=== PATIENT | female | born 1970 ===

== ENCOUNTER 2018-08-12 09:41 | Emergency (ER) | payer BC, MEDICAID ==
[2018-08-12 09:51] VITALS: RESP 18
[2018-08-12] MEDS ORDERED: Iohexol 240 (50 ml) PO STA (10:16)
[2018-08-12] MEDS ORDERED: Sodium Chloride 0.9% 1,000 ML IV STA (10:16)
[2018-08-12] MEDS ORDERED: Iohexol 240 (50 ml) ONE (10:29)
[2018-08-12] MEDS ORDERED: Sodium Chloride 0.9% 1,000 ML ONE (10:29)
[2018-08-12 10:38] LABS: HCG,QUALITATIVE URINE NEGATIVE (NEGATIVE); SQUAMOUS EPITHIAL 7 /hpf (0-5); URINE BILIRUBIN NEGATIVE (NEGATIVE); URINE BLOOD NEGATIVE (NEGATIVE); URINE CLARITY Clear (Clear); URINE COLOR Straw (YELLOW); URINE GLUCOSE (UA) NORMAL (Normal); URINE LEUKOCYTE ESTERASE NEG Leu/uL (Negative); URINE PROTEIN NEGATIVE (NEGATIVE); URINE UROBILINOGEN NORMAL mg/dL (0.2-1.0)
[2018-08-12 10:40] LABS: BASO # 0.1 K/uL (0.0-0.2); BASO % 1.4 % (0.0-2.0); EOS # 0.2 K/uL (0.0-0.7); EOS % 3.2 % (0.0-4.0); HEMOGLOBIN 12.3 g/dL (11.0-16.0); LYMPH # 2.5 K/uL (1.0-4.3); LYMPH % 36.6 % (20.0-40.0); MEAN CELL VOLUME 83.6 fL (81.0-99.0); MEAN CORPUSCULAR HEMOGLOBIN 27.9 pg (27.0-31.0); MEAN CORPUSCULAR HGB CONC 33.4 g/dL (33.0-37.0); MONO # 0.4 K/uL (0.0-0.8); MONO % 6.4 % (0.0-10.0); NEUT # 3.6 K/uL (1.8-7.0); NEUT % 52.4 % (50.0-75.0); RBC 4.4 Mil/uL (3.80-5.20); RED CELL DISTRIBUTION WIDTH 14.7 % (11.5-14.5); WHITE BLOOD COUNT 6.8 K/uL (4.8-10.8)
[2018-08-12 10:48] LABS: ALB/GLOB RATIO 1.2 (1.0-2.1); ALBUMIN 3.9 g/dL (3.5-5.0); ALT/SGPT 11 U/L (9-52); AST/SGOT 27 U/L (14-36); BLOOD UREA NITROGEN 13 mg/dL (7-17); CALCIUM 8.7 mg/dl (8.6-10.4); GFR NON-AFRICAN AMERICAN > 60; LIPASE 83 U/L (23-300)
--- NOTE | 2018-08-12 12:13 | C.PDOC ---
History Of Present Illness 47 y/o female presents to the ED complaining of abdominal pain for 1 week. Patient notes the pain was initially periumbilical, now localized to the LLQ. She denies any nausea, vomiting, diarrhea, chest pain, SOB, or fever. Time Seen by Provider: 08/12/18 10:05 Chief Complaint (Nursing): Abdominal Pain History Per: Patient History/Exam Limitations: no limitations Onset/Duration Of Symptoms: Days Current Symptoms Are (Timing): Still Present Location Of Pain/Discomfort: LLQ Associated Symptoms: denies: Fever, Vomiting, Diarrhea Past Medical History Reviewed: Historical Data, Nursing Documentation, Vital Signs Vital Signs: Last Vital Signs Temp 99.6 F 08/12/18 09:49 Pulse 79 08/12/18 09:49 Resp 18 08/12/18 09:49 BP 122/77 08/12/18 09:49 Pulse Ox 99 08/12/18 09:49 - Medical History PMH: Hypercholesterolemia Surgical History: Family History: States: Diabetes - Social History Hx Tobacco Use: No (former) Hx Alcohol Use: No Hx Substance Use: No - Immunization History Hx Tetanus Toxoid Vaccination: No Hx Influenza Vaccination: No Hx Pneumococcal Vaccination: No Review Of Systems Except As Marked, All Systems Reviewed And Found Negative. Constitutional: Negative for: Fever, Chills Gastrointestinal: Positive for: Abdominal Pain. Negative for: Nausea, Vomiting, Diarrhea, Hematochezia Genitourinary: Negative for: Dysuria, Frequency, Vaginal Bleeding Musculoskeletal: Negative for: Back Pain Physical Exam - Physical Exam Appears: Non-toxic, No Acute Distress Skin: Warm, Dry Head: Atraumatic, Normacephalic Eye(s): bilateral: Normal Inspection Oral Mucosa: Moist Neck: Normal ROM Chest: Symmetrical Cardiovascular: Rhythm Regular, No Murmur Respiratory: Normal Breath Sounds, No Rales, No Rhonchi, No Wheezing Gastrointestinal/Abdominal: Soft, Tenderness (to the LLQ), No Guarding, No Rebound Back: No CVA Tenderness Extremity: Bilateral: Atraumatic, Normal Color And Temperature, Normal ROM Neurological/Psych: Oriented x3, Normal Speech ED Course And Treatment - Laboratory Results Result Diagrams: 08/12/18 10:28 08/12/18 10:28 O2 Sat by Pulse Oximetry: 99 (RA) Pulse Ox Interpretation: Normal - CT Scan/US CT abdomen/pelvis Other Rad Studies (CT/US): Read By Radiologist, Radiology Report Reviewed CT/US Interpretation: Accession No. : [id number]. Patient Name / ID : FELIPE CARBONE / [id number]. Exam Date : 08/12/2018 13:59:16 ( Approved ). Study Comment : Sex / Age : F / 47Y. Creator : Akua Calles. Dictator : Rufina Sargent MD. Tester Sound : Tool Analyst : Rufina Sargent MD. Approver2 : Report Date : 08/12/2018 14:04:48. My Comment : . PROCEDURE: CT Abdomen and Pelvis with oral and IV contrast. HISTORY: LLQ abd pain. COMPARISON: None available. TECHNIQUE: Contiguous axial images of the abdomen and pelvis. Oral and IV contrast was administered. Coronal and Sagittal reformats generated and reviewed. Contrast dose: 100 mL Visipaque IV. Radiation dose: Total exam DLP = 1123.55 mGy-cm. This CT exam was performed using one or more of the following dose reduction techniques: Automated exposure control, adjustment of the mA and/or kV according to patient size, and/or use of iterative reconstruction technique. FINDINGS: LOWER THORAX: No visible consolidation, pleural effusion, or pneumothorax. LIVER: Unremarkable. GALLBLADDER AND BILE DUCTS: Cholelithiasis. PANCREAS: Unremarkable. SPLEEN: Unremarkable. ADRENALS: Unremarkable. KIDNEYS AND URETERS: The kidneys enhance symmetrically. No hydronephrosis or obstructing renal calculus. 16 mm low-density lesion, right lower pole kidney. BLADDER: The urinary bladder appears unremarkable. REPRODUCTIVE: Uterus is present. Suspect fundal fibroid. APPENDIX: Tiny probable appendix appears within normal limits of caliber. No secondary signs of acute appendicitis. BOWEL: The stomach is nondistended. The bowel loops appear within normal limits of caliber without evidence of intestinal obstruction. Moderate constipation. PERITONEUM: No significant free fluid. No definite free air. LYMPH NODES: Sub cm mesenteric lymph nodes, nonspecific. VASCULATURE: No atherosclerotic calcification or mural plaque present. No aortic aneurysm. BONES: No acute osseous abnormality is detected. OTHER FINDINGS: None. IMPRESSION: Cholelithiasis. Low 16 mm low-density lesion, right lower pole kidney, indeterminate. Suggest renal ultrasound for further evaluation. Sub cm mesenteric lymph nodes, nonspecific. Moderate constipation. Suspect fundal fibroid. Progress Note: Blood work and urine sent to the lab. IVF hydration administered. CT abd/pelvis ordered with PO and IV contrast. Imaging and lab results discussed with patient. On reevaluation patient is resting comfortably, tolerating PO, remains afebrile, and is stable for discharge home. Counseled regarding diagnosis and the need for follow up. Disposition - Disposition Disposition: HOME/ ROUTINE Disposition Time: 15:40 Condition: STABLE Additional Instructions: Follow up with your PMD within 1-2 days. Return to ED if feel worse. Prescriptions: Lactulose 30 ml PO DAILY PRN #600 ml PRN Reason: Constipation Instructions: Constipation in Adults, Acute Abdomen (Belly Pain), Adult (DC) Forms: [employer] (Estonian) Print Language: NORTHERN IRISH - Clinical Impression Clinical Impression: Constipation, Abdominal pain - PA / TWISTER FRAME TENDER / Resident Statement MD/DO has reviewed & agrees with the documentation as recorded. - Scribe Statement The provider has reviewed the documentation as recorded by the Scribe (Rashmi Mccall) All medical record entries made by the Scribe were at my direction and personally dictated by me. I have reviewed the chart and agree that the record accurately reflects my personal performance of the history, physical exam, medical decision making, and the department course for this patient. I have also personally directed, reviewed, and agree with the discharge instructions and disposition.
[2018-08-12] MEDS ORDERED: Iodixanol 320 MG/ML 100 ML BOTTLE IV ONE (12:27)
--- NOTE | 2018-08-12 14:32 | CT ---
PROCEDURE: CT Abdomen and Pelvis with oral and IV contrast. HISTORY: LLQ abd pain COMPARISON: None available TECHNIQUE: Contiguous axial images of the abdomen and pelvis. Oral and IV contrast was administered. Coronal and Sagittal reformats generated and reviewed. Contrast dose: 100 mL Visipaque IV Radiation dose: Total exam DLP = 1123.55 mGy-cm. This CT exam was performed using one or more of the following dose reduction techniques: Automated exposure control, adjustment of the mA and/or kV according to patient size, and/or use of iterative reconstruction technique. FINDINGS: LOWER THORAX: No visible consolidation, pleural effusion, or pneumothorax. LIVER: Unremarkable. GALLBLADDER AND BILE DUCTS: Cholelithiasis. PANCREAS: Unremarkable. SPLEEN: Unremarkable. ADRENALS: Unremarkable. KIDNEYS AND URETERS: The kidneys enhance symmetrically. No hydronephrosis or obstructing renal calculus. 16 mm low-density lesion, right lower pole kidney. BLADDER: The urinary bladder appears unremarkable. REPRODUCTIVE: Uterus is present. Suspect fundal fibroid. APPENDIX: Tiny probable appendix appears within normal limits of caliber. No secondary signs of acute appendicitis. BOWEL: The stomach is nondistended. The bowel loops appear within normal limits of caliber without evidence of intestinal obstruction. Moderate constipation. PERITONEUM: No significant free fluid. No definite free air. LYMPH NODES: Sub cm mesenteric lymph nodes, nonspecific. VASCULATURE: No atherosclerotic calcification or mural plaque present. No aortic aneurysm. BONES: No acute osseous abnormality is detected. OTHER FINDINGS: None. IMPRESSION: Cholelithiasis. Low 16 mm low-density lesion, right lower pole kidney, indeterminate. Suggest renal ultrasound for further evaluation. Sub cm mesenteric lymph nodes, nonspecific. Moderate constipation. Suspect fundal fibroid. Additional findings as above.
[2018-08-12 14:58] VITALS: O2SAT 99
[2018-08-12 15:49] VITALS: BP 110/61; PULSE 74; TEMP 98.6
== END 2018-08-12 15:49 | disposition home or self-care (01) ==
LOC: C.ER 09:41
DX: K59.00 Constipation, unspecified (principal); R10.9 Unspecified abdominal pain; E78.00 Pure hypercholesterolemia, unspecified
CPT/HCPCS: 74177; 80053; 81001; 83690; 84703; 85025; 96360; 99284; J7030; Q9966; Q9967